=== PATIENT | male | born 1970 | race Caucasian/White ===

== ENCOUNTER 2025-07-07 08:30 | Inpatient (IN) | payer BC ==
[~2025-07-07] VITALS: Ht 182.9 cm; Wt 95.0 kg
--- NOTE | 2025-07-07 08:37 | ELECTROCARDIOGRAPH REPORT ---
[facility] Test Date: 2025-07-07 Test Time: 08:36:06 Pat Name: FINESSE GUEVARA Department: [facility] Patient ID: [facility]-[id number] Room: [place] [address] Gender: M Safety Associate: : 1970 Requested By: JIMENEZ MORGAN Order Number: [id number] Reading MD: Dr. Zach Umanzor Measurements Intervals [place] Rate: 109 P: 75 CA: 178 QRS: 57 QRSD: 121 T: 164 QT: 340 QTc: 458 Interpretive Statements Sinus tachycardia Probable left atrial enlargement LVH with IVCD and secondary repol abnrm Electronically Signed On 07-09-2025 19:18:[address] Zach Umanzor Please click the below link to view image of tracing.
--- NOTE | 2025-07-07 08:53 | Physician Documentation ---
History of Present Illness ~ Chief Complaint: Chest Pain Stated Complaint: SOB Time Seen by MD: 08:52 HPI 54-year-old male presenting with chest pain and shortness of breath He tells me that for the past 8 days he has been having symptoms. He reports having intermittent chest tightness and pressure, worse in the left chest but radiates across his entire chest. It does not radiate to his neck or his back. He does also have shortness of breath that is worse with minimal exertion and with lying flat. He has had trouble sleeping due to shortness of breath. He has to stop and catch his breath when he walks short distances. He denies any fevers or recent infectious symptoms. He denies any leg pain or swelling. No history of heart problems. He does have a history of smoking 2 packs a day until he quit 8 days ago. He has no diagnosis of hypertension, hyperlipidemia or diabetes. No family history of heart disease or blood clots that he knows of. Medication Reconciliation Allergies: Coded Allergies: codeine (Verified Allergy, Intermediate, RASH, 07/07/25) Miscellaneous Medications Home Med List (No Home Medications), (Reported) Review of Systems Constitutional: Denies: fever Respiratory: Reports: SOB with exertion Cardiovascular: Reports: chest pain Physical Exam Vital Signs: Temperature: 97.3, Heart Rate: 116, Respiratory Rate: 22, BP: 156/69, Pulse Oximetry: 98, Weight: 95.000 Oxygen Flow Rate: 0 Physical Exam General: This is a pleasant and overall generally well-appearing middle-aged man, at bedside HEENT: Atraumatic, oropharynx is moist Heart: Tachycardic, heart rate around 110-120, + systolic murmur Lungs: Faint crackles in lung bases, no significant wheezing, no prolonged expiratory phase, normal oxygen saturation on room air Abdomen: Soft, nondistended, no significant tenderness to deep palpation, no rebound or guarding Extremities: Warm and well-perfused, no edema, no posterior calf or thigh tenderness Psychiatric: Appears mildly anxious but is cooperative with exam Progress Results/Orders Results/Orders Orders - JIMENEZ MORGAN MD Chest,Single View (07/07/25 08:51) Monitor (07/07/25 08:31) Saline Lock (07/07/25 08:31) Oxygen (07/07/25 08:31) Cta Chest Pe (07/07/25 10:10) Page Hospitalist (07/07/25 11:05) Completed Orders - JIMENEZ MORGAN MD Chest,Single View (07/07/25 08:51) Cbc/Diff (07/07/25 08:31) BMP (07/07/25 08:31) PBNP (07/07/25 08:31) Electrocardiogram (07/07/25 08:31) Hs Troponin I W Calculations (07/07/25 08:31) Hs Troponin I W Calculations (07/07/25 10:31) Hs Troponin I W Calculations (07/07/25 11:31) D-Dimer (07/07/25 09:09) Cta Chest Pe (07/07/25 10:10) Iohexol 350mg/Ml 100ml (Omnipaque 350mg/ (07/07/25 09:31) Aspirin 81mg Chew Tablet (Aspirin 81mg C (07/07/25 11:20) Hgb A1c (07/07/25 08:36) MG (07/07/25 08:36) TSH (07/07/25 08:36) Medications Received in ER Medications (Trade) Dose Ordered Sig/Dheeraj Route PRN Reason Start Time Stop Time Status Last Admin Dose Admin (aspirin 81MG chew tablet) 324 mg ONCE ONCE PO 07/07/25 11:20 07/07/25 11:21 DC 07/07/25 11:36 324 MG (heparin 10,000 unit/ml 1ml inj) 4,000 units ONCE ONCE IV 07/07/25 13:10 07/07/25 13:24 DC 07/07/25 13:36 4,000 UNITS Heparin Sodium/ Dextrose 250 ml @ 10 mls/hr Q25H PRN IV TO MAINTAIN PTT WITHIN RANGE 07/07/25 13:10 07/07/25 13:37 10 MLS/HR Vital Signs 07/07/25 07/07/25 07/07/25 07/07/25 08:33 08:45 08:57 09:32 Temp 97.3 Pulse 116 116 Resp 22 18 18 B/P (MAP) 156/69 163/72 (102) Pulse Ox 98 98 98 O2 Delivery Room Air* O2 Flow Rate 0 0 0 FiO2 21 07/07/25 07/07/25 11:30 12:16 Pulse 98 105 Resp 18 17 B/P (MAP) 145/61 (89) 140/61 (87) Pulse Ox 98 97 O2 Flow Rate 0 Laboratory Tests Test 07/07/25 08:36 07/07/25 10:44 07/07/25 11:46 White Blood Count 8.7 Red Blood Count 5.08 Hemoglobin 14.1 Hematocrit 42.7 Mean Corpuscular Volume 84.1 Mean Corpuscular Hemoglobin 27.7 Mean Corpuscular Hemoglobin Concent 33.0 Red Cell Distribution Width 13.8 Platelet Count 254 Mean Platelet Volume 7.1 L Neutrophils (%) (Auto) 64.1 Lymphocytes (%) (Auto) 29.8 Monocytes (%) (Auto) 4.9 Eosinophils (%) (Auto) 0.7 Basophils (%) (Auto) 0.5 Neutrophils # (Auto) 5.6 Lymphocytes # (Auto) 2.6 Monocytes # (Auto) 0.4 Eosinophils # (Auto) 0.1 Basophils # (Auto) 0.0 CBC Comment D-Dimer 1.05 H D-Dimer Comment Sodium Level 139 Potassium Level 4.4 Chloride Level 105 Carbon Dioxide Level 22.5 L Anion Gap 12 Blood Urea Nitrogen 14 Creatinine 1.02 Estimated GFR/1.73 m2 76 BUN/Creatinine Ratio 13.7 Glucose Level 106 H Hemoglobin A1c 5.6 Calcium Level 9.6 Magnesium Level 2.1 Troponin I High Sensitivity 715 *H 660 *H 663 *H Pro-B-Type Natriuretic Peptide 7654 H Albumin 3.8 Thyroid Stimulating Hormone (TSH) 1.88 Chemistry Comments Troponin I High Sens Percent Delta 7 0 Troponin I Hi Sens Absolute Change -55 3 Procalcitonin < 0.05 EKG/XRAY/CT/US/VASC/MRI EKG : Additional Comment I personally interpreted the EKG and this shows: Sinus tachycardic, rate 109, QTC 458, ST-depression in the lateral leads Chest X-Ray : Additional Comments I personally interpreted the x-ray, and it shows: Pulmonary edema concerning for congestive heart failure, no pneumothorax, no focal consolidation CT : Impression I personally interpreted the CT scan, and this shows no acute pulmonary embolus Consults/PCP Consults/PCP : Additional Comment Consult: I spoke to the internal medicine service, for admission in the hospital Heart Score: Heart Score Response (Comments) Value History Highly Suspicious 2 EKG Repolarization Disturb 1 Age 45-64 1 Risk Factors 1 or 2 risk factors 1 Troponin >3 x's Normal limit 2 Total 7 Medical Decision Making Differential Dx:Considerations: Include: angina, aortic dissection, chest wall pain, CHF, myocardial infarction, pericarditis, pneumonia, pulmonary embolus Additional Information The patient presents with chest pain and exertional shortness of breath. His history and exam is concerning for a cardiac cause of his pain, including he has a possible cardiac murmur. His workup is consistent with congestive heart failure and or NSTEMI. No pulmonary embolus. No evidence of infection. He was given aspirin and will be admitted to the medicine service for further workup and treatment. Departure Impression: Primary Impression: Chest pressure Additional Impression: Exertional shortness of breath Referrals: NO PRIMARY CARE PROVIDER (PCP) Signature Scribe Signature: na Attestation: JIMENEZ Art MD Jul 07, 2025 08:53
[2025-07-07 09:02] LABS: MEAN PLATELET VOLUME 7.1 FL (7.4-10.4); RED CELL DISTRIBUTION WIDTH 13.8 % (11.5-14.5)
--- NOTE | 2025-07-07 09:17 | RADIOLOGY REPORT ---
CHEST RADIOGRAPH Indication: CP Technique: Single frontal view of the chest was obtained COMPARISON: None FINDINGS: Lines and Tubes: None Lungs: Increased interstitial prominence Pleura: No effusion. No pneumothorax. Cardiomediastinal contours: Unremarkable Bones: Unremarkable IMPRESSION: Increased interstital prominence. This may represent pulmonary vascular congestion and/or viral pneumonia. Clinical correlation advised.
[2025-07-07 09:25] LABS: CREATININE 1.02 MG/DL (0.60-1.10); PRO BRAIN NATRIURETIC PEPTIDE 7654 PG/ML (0-125); TOTAL CARBON DIOXIDE 22.5 MMOL/L (24-32); eCRCL 91 ML/MIN; eGFR 76 ML/MIN
--- NOTE | 2025-07-07 11:05 | RADIOLOGY REPORT ---
CTA Chest with intravenous contrast INDICATION: Chest pain, shortness of breath COMPARISON: None TECHNIQUE: Multidetector spiral CTA of the chest was performed of the chest with intravenous contrast. PULMONARY ANGIOGRAPHY PROTOCOL was utilized using a bolus- tracking technique centered on the main pulmonary artery. Axial, coronal and sagittal multiplanar and MIP reformats were performed. Radiation Dose : 1. Chest: CTDI volume is 21.3 mGy. Dose-length product is 826 mGy*cm The dose indicators for CT are the volume Computed Tomography (CT) Dose Index (CTDIvol) and the Dose Length Product (DLP), and are measured in units of mGy and mGy-cm, respectively. These indicators are not patient dose, but values generated from the CT scanner acquisition factors. The report includes radiation exposure data for exposures received during this examination. Findings: Pulmonary artery: No pulmonary embolism Lower neck: Normal thyroid. Lungs: Mild interlobular septal thickening. Heart/Vascular Structures: Cardiomegaly. Coronary artery calcifications. Vascular calcifications of the aorta. Lymph Nodes: No adenopathy Pleura: Small right pleural effusion Musculoskeletal: No acute osseous abnormality. Soft tissues: Normal. Upper abdomen: Limited portions of the upper abdomen are unremarkable. IMPRESSION: No pulmonary embolism. Cardiomegaly with mild pulmonary edema and small right pleural effusion.
[2025-07-07] MEDS ORDERED: potassium Cl 20 mEq SR tablet PO PRN ×2 (13:10)
[2025-07-07] MEDS ORDERED: metoclopramide 5 mg/ml inj IV PRN (13:10)
[2025-07-07] MEDS ORDERED: magnesium sulf-water 4G/100mL 100 ML IV PRN (13:10)
[2025-07-07] MEDS ORDERED: potassium Cl 40MEQ/1/2NS 520ml 520 ML IV PRN (13:10)
[2025-07-07] MEDS ORDERED: magnesium Cl slow-release 64mg tablet PO PRN (13:10)
[2025-07-07] MEDS ORDERED: docusate sod 100mg capsule PO PRN (13:10)
[2025-07-07] MEDS ORDERED: ondansetron/PF 4mg/2ml inj IV PRN (13:10)
[2025-07-07] MEDS ORDERED: magnesium hydroxide 30ml (MOM) UD suspension PO PRN (13:10)
[2025-07-07] MEDS ORDERED: magnesium sulf-water 2g/50mL 50 ML IV PRN (13:10)
[2025-07-07] MEDS: PERFLUTREN PROTEIN-A MICROSPHR (Optison) 0.22 MG/ML 3ML VIAL IV ONE (13:15)
[2025-07-07] MEDS: heparin 10,000 units/1 ML INJ IV ONE (13:36)
[2025-07-07] MEDS: heparin 25,000 UNIT/250ml bag 250 ML IV PRN (13:37)
[2025-07-07] MEDS: HEPARIN DRIP-CARDIAC**PHARMACIST-TO-DOSE IV ONE (13:37)
[2025-07-07 14:40] LABS: INR 3.9 INR
--- NOTE | 2025-07-07 15:46 | HISTORY AND PHYSICAL-Residence ---
History & Physical Providers to CC Resident Creating Document: RICHARD CASTELAN REGIS ~ History of Present Illness Primary Medical Doctor: NONE Reason for Admit\Complaint: NSTEMI History of Present Illness A 54 years old male with no known past medical history presented with the acute shortness of breath and substernal pain over the 8 days back which was progressive and worsening today. He endorsed that he has not been visiting PCP over 30 years and not known what medical condition he has. He reported that he has been having progressive SOB on exertion even on staying still with the off and on chest pressure across the chest. He stated that he quit smoking 7 days ago, and used to smoke 2 packs per day for 35 years and reduced down to the 1 pack per day. He dose not have any knowledge if he has any cholesterol problems or HTN or DM or Heart diseases. He denies any extensive familial cardiac disorder history. He denies for hemoptysis, fever with chills and rigors, etc. Allergies: Coded Allergies: codeine (Verified Allergy, Intermediate, RASH, 07/07/25) Past Medical History Past Medical History no known relevant past medical history Past Surgical History Surgical History Comment not relevant past surgical history Past Social History Social History Comment currently living with his spouse, and used to smoke 2 packs of cigarette per day for 35 years and quit smoking 7 days ago. Denies using any illicit drugs and dose not drink alcohol. ROS All Other Systems: Reviewed and Negative ROS Constitutional: No fever, chills, dizziness, weakness, weight gain or loss Eyes: No pain, erythema, discharge, blurring of vision ENT: No sore throat, epistaxis, tinnitus Cardiovascular: No palpitations, syncope, lower extremity edema, paroxysmal nocturnal dyspnea Respiratory: No shortness of breath, cough, hemoptysis Gastrointestinal: Normal appetite. No nausea, vomiting, diarrhea, constipation, hematemesis, abdominal pain, bloating, melena or fresh blood Genitourinary: No frequency, urgency, nocturia, hematuria or dysuria Musculoskeletal: No arthralgias or myalgias Integumentary: No change in skin, hair, nails. No swelling, bruising, abrasions Neurologic: No headache, neck pain, numbness or tingling of the extremities, weakness Psychiatric: No delusions, depression, loss of interest in normal activity or change in sleep pattern, hallucinations, suicidal ideations Endocrine: No fatigue, weakness, polydipsia, polyuria, change in appetite, heat or cold intolerance, sweating, dry skin Hematological: No bleeding, petechiae, bruising Allergies: No asthma or urticaria Constitutional: Denies: fever Respiratory: Reports: SOB with exertion Cardiovascular: Reports: chest pain Exam Vitals: Vital Signs Date Time Temp Pulse Resp B/P (MAP) Pulse Ox O2 Delivery O2 Flow Rate FiO2 07/07/25 14:00 102 18 152/65 (94) 98 0 07/07/25 09:32 Room Air* 21 07/07/25 08:33 97.3 General: General: Well alert, well oriented, not confused, not agitated, not in acute distress, well cooperated during the physical. HEENT: HEENT: Conjunctive are pink, sclerae clear, no icterus, pupil is equal in both sides, reactive to light, no ear discharge, no pharyngeal erythema or an edema, mouth and lips are dry. Neck: Neck: Supple, no JVD, no lymphadenopathy and thyromegaly. Chest: Lungs:Equal air entry on both lungs, no additional sounds Cardiovascular: Heart: S1-S2 regular sinus rhythm and, regular rate, no gallops, no rubs, no murmurs Abdomen: Abdomen: No visible peristalsis, Bowel sounds present on auscultation, soft, nontender, no guarding, no rigidity Extremities: Extremities: No obvious deformities, no pitting edema bilaterally, capillary refill intact, able to wiggle toes both sides, peripheral pulsations are intact on both sides Central Nervous System: CHILDCARE DIRECTOR: No focal neurological deficits, no motor and sensory weakness in all 4 extremities, could move all 4 extremities Musculoskeletal: Musculoskeletal: No joint swelling, deformities, inflammations, and no scoliosis and back tenderness Skin: Skin: No active skin lesions and rashes Diagnostic Data Last Recorded Lab Results: 07/07/25 0836 07/07/25 0836 Diagnostic Data: Laboratory Tests Test 07/07/25 08:36 07/07/25 13:48 D-Dimer 1.05 MG/L FEU (0-0.50) H D-Dimer Comment Prothrombin Time 34.8 SECONDS (9.0-12.0) H INR International Normalized Ratio 3.9 INR Coagulation Comments Counseling Services Smoking & Tobacco Cessation: > 10 Minutes Advance Care Planning Advanced Care plannin - 30 Minutes Additional Plan A 54 years old male with no known past medical history presented with the acute shortness of breath and substernal pain over the 8 days back which was progressive and worsening today. He was found to have elevated serial trop with ST T depression at the lateral EKG leads. He was admitted for the NSTEMI for further investigation and management plan. # NSTEMI # nonspecific elevation of proBNP -given history of elevated initial troponin level 715 with a downtrending serial troponin show 660, 663 in the presence of typical angina associated with the shortness of breaths, EKG noted for ST-T depression in inferior leads, patient is possibly having the non-STEMI situation -elevated proBNP, pending 2D echocardiogram -started on heparin drip -consulted with Dr Tuyet Ureña and appreciate it. -SL Nitrogly as needed for CP -Protonix 40 mg PO Daily -Pending Utox screen # Acute respiratory distress # Elevated D Dimer -Ruled out Acute PE with CTA Chest showed No pulmonary embolism. Cardiomegaly with mild pulmonary edema and small right pleural effusion. -chest x-ray showed Increased interstital prominence. This may represent pulmonary vascular congestion and/or viral pneumonia. Clinical correlation advised. # Hypertension -HbA1c 5.6, pending lipid profile, TSH WNL -to calculate for 10 years ASCVD risk for statin therapy -control CP -continue monitoring BP -started PO Losartan 50 mg daily CODE STATUS: Full code DVT prophylaxis: IV heparin Analgesia/sedation: IV morphine as needed Lines/tubes: PIV GI prophylaxis: Protonix Nutrition: Heart healthy diet Prognosis: Guarded Disposition: Continue medical management including IV heparin, cardiology consultation, pain control and blood pressure control, PT eval and DC plan. Resident MD attestation: Patient was seen, examined and discussed with attending MD, Dr. Leanne CASTELAN MD Internal Medicine Resident, PGY3 [facility] Date of Service: Jul 07, 2025 Billing Provider: RACHELE REYES MD Common Visit Codes: [id number] INP/OBS CARE (HIGH) RICHARD CASTELAN, RES Jul 07, 2025 15:46 RACHELE REYES MD Jul 10, 2025 08:32
[2025-07-07 16:30] VITALS: BP 146/61; PULSE 108; RESP 16; TEMP 98; O2SAT 97
--- NOTE | 2025-07-07 16:47 | CONSULTATION REPORT ---
History of Present Illness Providers to CC CC: ROHAN UREÑA MD ~ Reason for Admit\Admit Dx: Cardiology consultation Refering MD: NONE History of Present Illness Patient is a 54-year-old male who presented secondary to shortness for breath and chest pain. He has no past medical history. Has been a current everyday smoker for many years. States shortness for breath started about one week ago prompting him to quit smoking quite suddenly. He has had intermittent chest pain that is substernal radiating to his left shoulder. Intermittently going to his back. 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 Complains of orthopnea preventing him from sleeping for the past three days. He has not no known family history of cardiac disease. EKG shows ST depression in V4 through V6. LVH pattern. High sensitivity troponins found to be elevated. Cardiology consultation requested with the on-call car rental agent, Dr. Ureña. Allergies: Coded Allergies: codeine (Verified Allergy, Intermediate, RASH, 07/07/25) Past Medical History Medical History Comment No past medical history Past Surgical History Surgical History Comment No history of any surgeries Past Family History Family History Comment Denies any known family history of cardiac disease, diabetes, stroke or any other known medical complaints. Past Social History Social History Comment He smokes about a pack a day but quit about one week ago. Prior to this he smoked two packs a day for a couple of years. Denies alcohol use. Smokes marijuana. 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 Lives with . Physical Exam Last Vital Signs Recorded: RN Vital Signs have been reviewed: Yes, Temperature: 97.3, Heart Rate: 112, Respiratory Rate: 14, BP: 155/76, Pulse Oximetry: 98, Weight: 95.000 Physical Exam General: Awake, alert, oriented. No apparent distress Neck: Supple. Normal range of motion. No JVD Respiratory: Lungs are clear to auscultation bilaterally. No respiratory distress. Chest: Normal shape and size. No accessory muscle use. Cardiovascular: Regular rate and rhythm. S1-S2. No murmur, gallop, rub. Gastrointestinal: Abdomen is soft. Nontender to palpation. Bowel sounds present. Extremities: No lower extremity edema, cyanosis or clubbing. Neurologic: Alert and oriented x4. Nonfocal Psychiatric: Normal mood and affect. Skin: Normal color. Warm and dry. Review of Systems ROS Review of systems negative except specifically documented in HPI. Results X-ray X-ray Chest x-ray reviewed by myself indicates pulmonary vascular congestion. Diagram Lab Result Diagram: 07/07/2583507/07/25835 Assessment/Plan Additional Plan Patient presented with chest pain and shortness for breath. The following is his problem list: NSTEMI High sensitivity troponin 715, 660, 663. --continue with heparin drip --aspirin 81 mg daily --start metoprolol --recommend cardiac catheterization. Risks, benefits and alternatives were reviewed in detail with him and his . They had the opportunity to ask questions. Willing to proceed with the same. Discussed with Dr. Ureña in agreement. We will be scheduled for tomorrow morning. Suspected heart failure Shortness for breath with elevated NT proBNP. Pulmonary vascular congestion on x-ray. Echocardiogram is pending --order placed for one time dose of Lasix. I will re-evaluate in the morning. Tobacco use disorder --highly encouraged to quit Case discussed with Dr. Ureña. In agreement with the above. Supervising MD Supervising Physician: LEELEE Shafer NP Jul 07, 2025 16:47
[2025-07-07] MEDS ORDERED: NO HOME MEDS (16:54)
[2025-07-07 18:00] VITALS: BP 163/69; PULSE 120; RESP 22; TEMP 98.3; O2SAT 96
[2025-07-07] MEDS: pantoprazole 40mg Tablet.DR PO SCH (18:04)
--- NOTE | 2025-07-07 18:51 | CARDIOLOGY REPORT ---
APPROVED REPORT EXAM: Comprehensive 2D, Doppler, and color-flow Echocardiogram. Patient Location: [address] Blood Pressure: 146/61 mmHg Heart Rate: 112 bpm Rhythm: SINUS TACHYCARDIA Indications CHEST PAIN TROP 715, 660, 663 PBNP 7654 SHORTNESS OF BREATH MURMUR Wellness Assistant: NONE Previous echo: NONE 2D Dimensions RVDd 4.7 cm IVSd 1.2 (0.7-1.1cm) LVDd 5.7 cm PWd 1.2 (0.7-1.1cm) IVSs 1.4 (0.8-1.2cm) LVDs 4.5 (2.5-4.0cm) PWs 1.4 (0.8-1.2cm) LVOT Diameter 2.62 (1.8-2.4cm) LVEF(%) 41.9 (>50%) FS (%) 20.8 % SV 68.2 ml CO 7.5 L/min M-Mode Dimensions Left Atrium(MM) 4.65 (2.5-4.0cm) Aortic Root 4.04 (2.2-3.7cm) Aortic Cusp Exc 2.04 (1.5-2.0cm) Aortic Valve AoV Peak Phillip. 191.9 cm/s AoV VTI 28.4 cm AO Peak GR. 14.7 mmHg AO Mean GR. 9 mmHg LVOT VTI 19.14 cm LVOT Peak Phillip. 108.9 cm/s DAVID(VTI)/BSA 3.65 cm2/m2 DAVID (VTI) 3.65 cm2 Mitral Valve MV E Velocity 141.0 cm/s MV Peak Gr. 10 mmHg MV PHT 48 ms MVA (PHT) 4.58 cm2 MV VMax 157.6 cm/s LEFT VENTRICLE Dilated LV size and wall thickness. Multisegmental wall motion abnormalities. Overall systolic function is severely reduced. LVEF is 30-35%. RIGHT VENTRICLE RV is moderately dilated with normal function. ATRIA Left atrium is mildly dilated. AORTIC VALVE Trileaflet AV appears normal without stenosis. Eccentric at least moderate insufficiency, difficult to evaluate due to rapid heart rate. MITRAL VALVE Mild MV annular calcification without stenosis. Trace regurgitation. TRICUSPID VALVE TV appears structurally normal with trace regurgitation. PULMONIC VALVE Normal PV without stenosis, physiologic insufficiency. GREAT VESSELS Aortic root is mildly dilated, at 4.04. PERICARDIUM Normal pericardium. No effusion. Other Information Study Quality: Adequate Conclusion Dilated LV size and wall thickness. Multisegmental wall motion abnormalities. Overall systolic function is severely reduced. LVEF is 30-35%. RV is moderately dilated with normal function. Left atrium is mildly dilated. Trileaflet AV appears normal without stenosis. Eccentric at least moderate insufficiency, difficult to evaluate due to rapid heart rate. Mild MV annular calcification without stenosis. Trace regurgitation. TV appears structurally normal with trace regurgitation. Aortic root is mildly dilated, at 4.04. Normal pericardium. No effusion.
[2025-07-07 19:35] VITALS: BP 126/58; PULSE 101; TEMP 98; O2SAT 99
[2025-07-07 19:55] VITALS: BP 123/61; PULSE 96; O2SAT 96
--- NOTE | 2025-07-07 19:55 | ELECTROCARDIOGRAPH REPORT ---
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 LANDEN De Santiago Measurements Intervals [place] Rate: 97 P: 55 NE: 203 QRS: 32 QRSD: 126 T: 144 QT: 369 QTc: 469 Interpretive Statements Sinus rhythm Borderline prolonged NE interval Left bundle branch block Electronically Signed On 07-08-2025 16:48:[address] LANDEN De Santiago Please click the below link to view image of tracing.
[2025-07-07] MEDS: mag hydrox/Alum hydrox/simeth 30ml oral suspension PO PRN (19:57)
[2025-07-07 20:00] VITALS: RESP 18; O2SAT 99
[2025-07-07] MEDS: K and/or MAG REPLACEMENT MC SCH (20:00)
[2025-07-07] MEDS: MESSAGE TO NURSING IV ONE (21:45)
[2025-07-07 22:00] VITALS: BP 113/51; PULSE 90; RESP 18; TEMP 97.8; O2SAT 93
[2025-07-07] MEDS: heparin 10,000 units/1 ML INJ IV PRN (22:04)
[2025-07-08] VITALS (9 sets, daily range): BP systolic 115–133; BP diastolic 48–93; PULSE 71–105; RESP 13–23; TEMP 97–98.7; O2SAT 93–99
[2025-07-08 04:39] LABS: MEAN PLATELET VOLUME 7.2 FL (7.4-10.4); RED CELL DISTRIBUTION WIDTH 13.5 % (11.5-14.5)
[2025-07-08 05:17] LABS: CHOL/HDL RATIO 6.4 (0.00-4.99); CREATININE 1.15 MG/DL (0.60-1.10); LDL CHOLESTEROL 142 MG/DL (50-100); TOTAL CARBON DIOXIDE 22.3 MMOL/L (24-32); eCRCL 81 ML/MIN; eGFR 66 ML/MIN
[2025-07-08] MEDS ORDERED: LIDOcaine 1% (10mg/ml) 2ml vial ONE (05:29)
[2025-07-08] MEDS: MESSAGE TO NURSING IV ONE (05:44)
[2025-07-08] MEDS: aspirin 81mg, enteric-coated 1 TAB TABLET.DR PO SCH (09:31)
[2025-07-08] MEDS: metoprolol succinate 25mg (24-HOUR) SR. Tablet PO SCH (09:31)
--- NOTE | 2025-07-08 09:50 | PROGRESS NOTE- Residence ---
Progress Note - Resident Providers to CC Resident Creating Document: RICHARD CASTELAN, REGIS ~ Antibiotic Timeout Antibiotic Ordered?: No Subjective pt will be having the cardiac angiogram tomorrow by Dr Ureña as his INR was 3.9. Objective Vital Signs Date Time Temp Pulse Resp B/P (MAP) Pulse Ox O2 Delivery O2 Flow Rate FiO2 07/08/25 02:00 98.7 94 18 118/60 (79) 93 Room Air 07/07/25 14:00 0 07/07/25 09:32 21 Result Diagram: 07/08/2541907/08/25419 Vitals were stable at the moment with temp 98.7 F, WA 94/minute, RR 18/minute, BP 118/60 mm Hg, pulse oximetry 93% on room air. On exam, General: Well alert, well oriented, not confused, not agitated, not in acute distress, well cooperated during the physical. HEENT: Conjunctive are pink, sclerae clear, no icterus, pupil is equal in both sides, reactive to light, no ear discharge, no pharyngeal erythema or an edema, mouth and lips are dry. Neck: Supple, no JVD, no lymphadenopathy and thyromegaly. Lungs:Equal air entry on both lungs, no additional sounds Heart: S1-S2 regular sinus rhythm and, regular rate, no gallops, no rubs, no murmurs Abdomen: No visible peristalsis, Bowel sounds present on auscultation, soft, nontender, no guarding, no rigidity Extremities: No obvious deformities, no pitting edema bilaterally, capillary refill intact, able to wiggle toes both sides, peripheral pulsations are intact on both sides ETHANOL QUALITY LEADER: No focal neurological deficits, no motor and sensory weakness in all 4 extremities, could move all 4 extremities Musculoskeletal: No joint swelling, deformities, inflammations, and no scoliosis and back tenderness Skin: No active skin lesions and rashes Coagulation Studies Laboratory Tests Test 07/07/25 08:36 07/07/25 13:48 07/08/25 04:20 D-Dimer 1.05 MG/L FEU (0-0.50) H D-Dimer Comment Prothrombin Time 34.8 SECONDS (9.0-12.0) H INR International Normalized Ratio 3.9 INR APTT (Heparin Protocol) 33 SECONDS (45-60) L Coagulation Comments Assessment Assessment A 54 years old male with no known past medical history presented with the acute shortness of breath and substernal pain over the 8 days back which was progressive and worsening today. He was found to have elevated serial trop with ST T depression at the lateral EKG leads. He was admitted for the NSTEMI for further investigation and management plan. He was evaluated by Dr Tuyet Ureña and team for the further evaluation and coronary angiogram. Plan Plan # NSTEMI # Acute on chronic decompensated CHFrEF 30-35% on 07/07/25 -given history of elevated initial troponin level 715 with a downtrending serial troponin show 660, 663 in the presence of typical angina associated with the shortness of breaths, EKG noted for ST-T depression in inferior leads, patient is possibly having the non-STEMI situation -elevated proBNP, pending 2D echocardiogram -started on heparin drip -consulted with Dr Tuyet Ureña and appreciate it. -SL Nitrogly as needed for CP -Protonix 40 mg PO Daily -Pending Utox screen 07/08/25: He will be undergoing coronary angiogram today -continue IV Heparin until further notice by Cardiology team -continue metoprolol succinate 50mg QD -echocardiogram on 07/07/2025 showed LVEF 30-35%, multi segmental wall motion abnormalities, overall systolic function severely reduced, RV moderately dilated, LA mildly dilated, trace MR, TR, mildly dilated aortic root 4.04, normal pericardium and no effusion. -was given one time dose of IV Lasix 20 mg once yesterday and continue BID # Acute respiratory distress # Elevated D Dimer -Ruled out Acute PE with CTA Chest showed No pulmonary embolism. Cardiomegaly with mild pulmonary edema and small right pleural effusion. -chest x-ray showed Increased interstital prominence. This may represent pulmonary vascular congestion and/or viral pneumonia. Clinical correlation advised. # Hypertension # HLD # Overweight with BMI 28.4 -HbA1c 5.6, pending lipid profile, TSH WNL -to calculate for 10 years ASCVD risk for statin therapy -control CP -continue monitoring BP -started PO Losartan 50 mg daily 07/08/25: BP is stabilized and controlled well around 120/60 mm Hg, continue Losartan -total cholesterol 206, LDL 142 with a goal LDL she will be< 55 -10 year ASCVD risk is 22%, continue high intensity atorvastatin 40 mg daily -HGB A1c 5.6 CODE STATUS: Full code DVT prophylaxis: IV heparin Analgesia/sedation: IV morphine as needed Lines/tubes: PIV GI prophylaxis: Protonix Nutrition: Heart healthy diet Prognosis: Guarded Disposition: Continue medical management including IV heparin until further noticed by Cardiology, proceed with the cardiology Catheterization tomorrow, pain control and blood pressure control, PT eval and DC plan. Resident MD attestation: Patient was seen, examined and discussed with attending MD, Dr. Leanne CASTELAN MD Internal Medicine Resident, PGY3 [facility] Date of Service: Jul 08, 2025 Billing Provider: RACHELE REYES MD Common Visit Codes: [id number] INP/OBS CARE(HIGH) RICHARD CASTELAN, REGIS Jul 08, 2025 09:50 RACHELE REYES MD Jul 10, 2025 08:32
--- NOTE | 2025-07-08 09:55 | PROGRESS NOTE ---
Progress Note Cardiology Providers to CC ~ Subjective Subjective Patient resting comfortably in bed. Had planned for cardiac catheterization this morning however his INR was 3.9 yesterday and therefore case was canceled. Heparin drip was stopped by Dr. Ureña States he did not sleep well last night. Continues to have some shortness for breath and tightness in the chest. Objective Result Diagram: 07/08/25 04207/08/25419 Objective General: Awake, alert, oriented. No apparent distress Neck: Supple. Normal range of motion. No JVD Respiratory: Lungs are clear to auscultation bilaterally. No respiratory distress. Chest: Normal shape and size. No accessory muscle use. Cardiovascular: Regular rate and rhythm. S1-S2. No murmur, gallop, rub. Gastrointestinal: Abdomen is soft. Nontender to palpation. Bowel sounds present. Extremities: No lower extremity edema, cyanosis or clubbing. Neurologic: Alert and oriented x4. Nonfocal Psychiatric: Normal mood and affect. Skin: Normal color. Warm and dry. Coagulation Studies Laboratory Tests Test 07/07/25 08:36 07/07/25 13:48 07/08/25 04:20 D-Dimer 1.05 MG/L FEU (0-0.50) H D-Dimer Comment Prothrombin Time 34.8 SECONDS (9.0-12.0) H INR International Normalized Ratio 3.9 INR APTT (Heparin Protocol) 33 SECONDS (45-60) L Coagulation Comments Problem\Assessment\Plan Additional Plan Patient presented with chest pain and shortness for breath. The following is his problem list: NSTEMI High sensitivity troponin 715, 660, 663. --aspirin 81 mg daily --metoprolol succinate 25 mg daily --high intensity statin to keep goal LDL less than 55 --heparin drip stopped by Dr. Ureña 07/08/25 --07/08/25: Had planned for cardiac catheterization this morning however INR was 3.9 yesterday. We will recheck INR today and again tomorrow morning. If it continues to trend down we will consider cardiac catheterization. Heart failure with reduced ejection fraction TTE demonstrates LV dilated (LVDd 5.7 cm) with LVEF 30-35%. RV moderately dilated with normal function. Moderate AI. Shortness for breath with elevated NT proBNP. Pulmonary vascular congestion on x-ray. --07/08/25: Patient continues to have shortness for breath. 20 mg IV Lasix x1 ordered. --metoprolol succinate 25 mg daily --continue losartan 50 mg daily --we will consider Aldactone/Jardiance if able to tolerate prior to discharge. Of note, Jardiance and Entresto may be cost prohibitive for him. Tobacco use disorder Quit smoking when he started feeling short of breath last week. --highly encouraged to quit Hyperlipidemia Total cholesterol 206, LDL 142, HDL 32, triglycerides 109 --high-intensity statin as noted above is recommended. Case discussed with Dr. Ureña. In agreement with the above. Supervising Physician: LEELEE Shafer NP Jul 08, 2025 09:55
[2025-07-08 11:35] LABS: INR 1.1 INR
[2025-07-09] VITALS (9 sets, daily range): BP systolic 96–127; BP diastolic 44–58; PULSE 89–99; RESP 16–20; TEMP 97.1–97.8; O2SAT 93–99
[2025-07-09 05:39] LABS: LEUKOCYTE ESTERASE ,URINE NEGATIVE (Neg); NITRITES, URINE NEGATIVE (Neg); OCCULT BLOOD,URINE TRACE-INTACT (Neg)
[2025-07-09 06:12] LABS: URINE AMPHETAMINE SCREEN NEGATIVE (Neg); URINE BARBITUATE SCREEN NEGATIVE (Neg); URINE BENZODIAZEPINES SCREEN NEGATIVE (Neg); URINE CANNABINOID SCREEN POSITIVE (Neg); URINE COCAINE SCREEN NEGATIVE (Neg); URINE METHADONE SCREEN NEGATIVE (Neg); URINE OPIATE SCREEN NEGATIVE (Neg); URINE PHENCYCLIDINE SCREEN NEGATIVE (Neg)
[2025-07-09 06:17] LABS: UA COLLECTION TYPE CLN CATCH MIDSTREAM
[2025-07-09 06:19] LABS: MUCUS STRANDS NONE SEEN /LPF (Neg); SQUAMOUS EPITHELIAL CELL,UR FEW /LPF (FEW)
[2025-07-09 06:45] LABS: INR 1.1 INR
[2025-07-09 06:46] LABS: MEAN PLATELET VOLUME 7.3 FL (7.4-10.4); RED CELL DISTRIBUTION WIDTH 13.6 % (11.5-14.5)
[2025-07-09 06:52] LABS: CREATININE 0.91 MG/DL (0.60-1.10); TOTAL CARBON DIOXIDE 25.0 MMOL/L (24-32); eCRCL 102 ML/MIN; eGFR 87 ML/MIN
--- NOTE | 2025-07-09 16:00 | PROGRESS NOTE- Residence ---
Progress Note - Resident Providers to CC Resident Creating Document: RICHARD CASTELAN RES ~ Antibiotic Timeout Antibiotic Ordered?: Yes Subjective pt will be having the angiogram by Dr Tuyet Ureña team today. His INR today was 1.1. No special complaints including chest pain were reported. Objective Vital Signs Date Time Temp Pulse Resp B/P (MAP) Pulse Ox O2 Delivery O2 Flow Rate FiO2 07/09/25 11:00 97.3 99 20 123/53 (76) 95 Room Air 07/07/25 14:00 0 07/07/25 09:32 21 Result Diagram: 07/09/25 0551 07/09/25 0551 Vitals were stable at the moment with temp 97.3 F, SC 99/minute, RR 20/minute, BP 123/53 mm Hg, pulse oximetry 95% on room air. On exam, General: Well alert, well oriented, not confused, not agitated, not in acute distress, well cooperated during the physical. HEENT: Conjunctive are pink, sclerae clear, no icterus, pupil is equal in both sides, reactive to light, no ear discharge, no pharyngeal erythema or an edema, mouth and lips are dry. Neck: Supple, no JVD, no lymphadenopathy and thyromegaly. 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: No focal neurological deficits, no motor and sensory weakness in all 4 extremities, could move all 4 extremities Musculoskeletal: No joint swelling, deformities, inflammations, and no scoliosis and back tenderness Skin: No active skin lesions and rashes Coagulation Studies Laboratory Tests Test 07/07/25 08:36 07/08/25 04:20 07/09/25 05:51 D-Dimer 1.05 MG/L FEU (0-0.50) H D-Dimer Comment APTT (Heparin Protocol) 33 SECONDS (45-60) L Prothrombin Time 11.1 SECONDS (9.0-12.0) INR International Normalized Ratio 1.1 INR Coagulation Comments Assessment Assessment A 54 years old male with no known past medical history presented with the acute shortness of breath and substernal pain over the 8 days back which was progressive and worsening today. He was found to have elevated serial trop with ST T depression at the lateral EKG leads. He was admitted for the NSTEMI for further investigation and management plan. He was evaluated by Dr Tuyet Ureña and team for the further evaluation and coronary angiogram. Plan Plan # NSTEMI # Acute on chronic decompensated CHFrEF 30-35% on 07/07/25 -given history of elevated initial troponin level 715 with a downtrending serial troponin show 660, 663 in the presence of typical angina associated with the shortness of breaths, EKG noted for ST-T depression in inferior leads, patient is possibly having the non-STEMI situation -elevated proBNP, pending 2D echocardiogram -started on heparin drip -consulted with Dr Tuyet Ureña and appreciate it. -SL Nitrogly as needed for CP -Protonix 40 mg PO Daily -Pending Utox screen 07/08/25: He will be undergoing coronary angiogram today -continue IV Heparin until further notice by Cardiology team -continue metoprolol succinate 50mg QD -echocardiogram on 07/07/2025 showed LVEF 30-35%, multi segmental wall motion abnormalities, overall systolic function severely reduced, RV moderately dilated, LA mildly dilated, trace MR, TR, mildly dilated aortic root 4.04, normal pericardium and no effusion. -was given one time dose of IV Lasix 20 mg once yesterday and continue BID 07/09/2025: Dr Tuyet Ureña will be doing angiogram today. -continue GDMT as per BP allows, and IV Lasix 20 BID # Acute respiratory distress # Elevated D Dimer -Ruled out Acute PE with CTA Chest showed No pulmonary embolism. Cardiomegaly with mild pulmonary edema and small right pleural effusion. -chest x-ray showed Increased interstital prominence. This may represent pulmonary vascular congestion and/or viral pneumonia. Clinical correlation advised. 06/29/2025: Continue IV Lasix 20 mg b.i.d. -pulmonary rehab # Hypertension # HLD # Overweight with BMI 28.4 -HbA1c 5.6, pending lipid profile, TSH WNL -to calculate for 10 years ASCVD risk for statin therapy -control CP -continue monitoring BP -started PO Losartan 50 mg daily 07/08/25: BP is stabilized and controlled well around 120/60 mm Hg, continue Losartan -total cholesterol 206, LDL 142 with a goal LDL she will be< 55 -10 year ASCVD risk is 22%, continue high intensity atorvastatin 40 mg daily -HGB A1c 5.6 07/09/2025: BP stabilized around 120/50 mm Hg -continue p.o. losartan 50 mg daily, atorvastatin 40 mg daily -RBS ranging around 110s # mild protein calorie malnutrition -encourage protein diet. CODE STATUS: Full code DVT prophylaxis: IV heparin Analgesia/sedation: IV morphine as needed Lines/tubes: PIV GI prophylaxis: Protonix Nutrition: Heart healthy diet Prognosis: Guarded Disposition: Continue medical management, proceed with the cardiology Catheterization, pain control and blood pressure control, PT eval and DC plan. Resident MD attestation: Patient was seen, examined and discussed with attending MD, Dr. Leanne CASTELAN MD Internal Medicine Resident, PGY3 [facility] Date of Service: Jul 09, 2025 Billing Provider: RACHELE REYES MD Common Visit Codes: [id number] INP/OBS CARE(HIGH) RICHARD CASTELAN, RES Jul 09, 2025 16:00 RACHELE REYES MD Jul 10, 2025 08:31
--- NOTE | 2025-07-09 16:05 | PROGRESS NOTE ---
Progress Note Cardiology Providers to CC ~ Subjective Subjective Patient is feeling much better today, his SOB has improved. INR is 1.1 so he is now a candidate for cardiac catheterization. Objective Result Diagram: 07/09/25 0551 07/09/25 0551 Objective General: Awake, alert, oriented. No apparent distress Neck: Supple. Normal range of motion. No JVD Respiratory: Lungs are clear to auscultation bilaterally. No respiratory distress. Chest: Normal shape and size. No accessory muscle use. Cardiovascular: Regular rate and rhythm. S1-S2. No murmur, gallop, rub. Gastrointestinal: Abdomen is soft. Nontender to palpation. Bowel sounds present. Extremities: No lower extremity edema, cyanosis or clubbing. Neurologic: Alert and oriented x4. Nonfocal Psychiatric: Normal mood and affect. Skin: Normal color. Warm and dry. Coagulation Studies Laboratory Tests Test 07/07/25 08:36 07/08/25 04:20 07/09/25 05:51 D-Dimer 1.05 MG/L FEU (0-0.50) H D-Dimer Comment APTT (Heparin Protocol) 33 SECONDS (45-60) L Prothrombin Time 11.1 SECONDS (9.0-12.0) INR International Normalized Ratio 1.1 INR Coagulation Comments Problem\Assessment\Plan Additional Plan Additional Plan Patient presented with chest pain and shortness for breath. The following is his problem list: NSTEMI High sensitivity troponin 715, 660, 663. --aspirin 81 mg daily --metoprolol succinate 25 mg daily --high intensity statin to keep goal LDL less than 55 --heparin drip stopped by Dr. Ureña 07/08/25 --07/09/25: INR now 1.1. Dr. Urñea to proceed with cardiac catheterization with possible revascularization today. Discussed the nature of the procedure, including risks, benefits, and alternatives at length with patient and his . All questions were addressed and answered. The patient voices understanding and is willing to move forward. Heart failure with reduced ejection fraction TTE demonstrates LV dilated (LVDd 5.7 cm) with LVEF 30-35%. RV moderately dilated with normal function. Moderate AI. Shortness for breath with elevated NT proBNP. Pulmonary vascular congestion on x-ray. --07/08/25: Patient continues to have shortness for breath. 20 mg IV Lasix x1 ordered. --metoprolol succinate 25 mg daily --continue losartan 50 mg daily --we will consider Aldactone/Jardiance if able to tolerate prior to discharge. Of note, Jardiance and Entresto may be cost prohibitive for him. Tobacco use disorder Quit smoking when he started feeling short of breath last week. --highly encouraged to continue not smoking after discharge. Hyperlipidemia Total cholesterol 206, LDL 142, HDL 32, triglycerides 109 --high-intensity statin as noted above is recommended. This plan was discussed with supervising physicians, Dr. Tor Ureña and Dr. Néstor Ureña, who are in agreement with above. Supervising Physician: YIN Carranza Jul 09, 2025 16:05
[2025-07-10] VITALS (20 sets, daily range): BP systolic 103–139; BP diastolic 40–59; PULSE 66–101; RESP 12–25; TEMP 97–97.9; O2SAT 94–98
[2025-07-10 06:18] LABS: CREATININE 0.94 MG/DL (0.60-1.10); TOTAL CARBON DIOXIDE 27.6 MMOL/L (24-32); eCRCL 99 ML/MIN; eGFR 84 ML/MIN
[2025-07-10 06:25] LABS: MEAN PLATELET VOLUME 7.1 FL (7.4-10.4); RED CELL DISTRIBUTION WIDTH 13.6 % (11.5-14.5)
--- NOTE | 2025-07-10 12:44 | PROGRESS NOTE- Residence ---
Progress Note - Resident Providers to CC Resident Creating Document: RICHARD CASTELAN RES ~ Antibiotic Timeout Antibiotic Ordered?: No Subjective Patient's angiogram was postponed yesterday. The patient will be taken to angiogram today. Objective Vital Signs Date Time Temp Pulse Resp B/P (MAP) Pulse Ox O2 Delivery O2 Flow Rate FiO2 07/10/25 08:49 14 98 Room Air 0.0 21 07/10/25 07:27 91 07/10/25 06:00 97.3 107/42 (63) Result Diagram: 07/10/25 0535 07/10/25 0535 Vitals were stable at the moment with temp 97.3 F, ID 99/minute, RR 20/minute, BP 123/53 mm Hg, pulse oximetry 95% on room air. On exam, General: Well alert, well oriented, not confused, not agitated, not in acute distress, well cooperated during the physical. HEENT: Conjunctive are pink, sclerae clear, no icterus, pupil is equal in both sides, reactive to light, no ear discharge, no pharyngeal erythema or an edema, mouth and lips are dry. Neck: Supple, no JVD, no lymphadenopathy and thyromegaly. 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: No focal neurological deficits, no motor and sensory weakness in all 4 extremities, could move all 4 extremities Musculoskeletal: No joint swelling, deformities, inflammations, and no scoliosis and back tenderness Skin: No active skin lesions and rashes Coagulation Studies Laboratory Tests Test 07/07/25 08:36 07/08/25 04:20 07/09/25 05:51 D-Dimer 1.05 MG/L FEU (0-0.50) H D-Dimer Comment APTT (Heparin Protocol) 33 SECONDS (45-60) L Prothrombin Time 11.1 SECONDS (9.0-12.0) INR International Normalized Ratio 1.1 INR Coagulation Comments Assessment Assessment A 54 years old male with no known past medical history presented with the acute shortness of breath and substernal pain over the 8 days back which was progressive and worsening today. He was found to have elevated serial trop with ST T depression at the lateral EKG leads. He was admitted for the NSTEMI for further investigation and management plan. He was evaluated by Dr Tuyet Ureña and team for the further evaluation and coronary angiogram. Plan Plan # NSTEMI # Acute on chronic decompensated CHFrEF 30-35% on 07/07/25 -given history of elevated initial troponin level 715 with a downtrending serial troponin show 660, 663 in the presence of typical angina associated with the shortness of breaths, EKG noted for ST-T depression in inferior leads, patient is possibly having the non-STEMI situation -elevated proBNP, pending 2D echocardiogram -started on heparin drip -consulted with Dr Tuyet Ureña and appreciate it. -SL Nitrogly as needed for CP -Protonix 40 mg PO Daily -Pending Utox screen 07/08/25: He will be undergoing coronary angiogram today -continue IV Heparin until further notice by Cardiology team -continue metoprolol succinate 50mg QD -echocardiogram on 07/07/2025 showed LVEF 30-35%, multi segmental wall motion abnormalities, overall systolic function severely reduced, RV moderately dilated, LA mildly dilated, trace MR, TR, mildly dilated aortic root 4.04, normal pericardium and no effusion. -was given one time dose of IV Lasix 20 mg once yesterday and continue BID 07/09/2025: Dr Tuyet Ureña will be doing angiogram today. -continue GDMT as per BP allows, and IV Lasix 20 BID 07/10/2025: Patient will be having coronary angiogram today sc yesterday was postponed -continue GDM T on IV Lasix 20 b.i.d. # Acute respiratory distress # Elevated D Dimer -Ruled out Acute PE with CTA Chest showed No pulmonary embolism. Cardiomegaly with mild pulmonary edema and small right pleural effusion. -chest x-ray showed Increased interstital prominence. This may represent pulmonary vascular congestion and/or viral pneumonia. Clinical correlation advised. 07/10/2025: Continue IV diuretics 07/09/2025: Continue IV Lasix 20 mg b.i.d. -pulmonary rehab # Hypertension # HLD # Overweight with BMI 28.4 -HbA1c 5.6, pending lipid profile, TSH WNL -to calculate for 10 years ASCVD risk for statin therapy -control CP -continue monitoring BP -started PO Losartan 50 mg daily 07/08/25: BP is stabilized and controlled well around 120/60 mm Hg, continue Losartan -total cholesterol 206, LDL 142 with a goal LDL she will be< 55 -10 year ASCVD risk is 22%, continue high intensity atorvastatin 40 mg daily -HGB A1c 5.6 07/09/2025: BP stabilized around 120/50 mm Hg -continue p.o. losartan 50 mg daily, atorvastatin 40 mg daily -RBS ranging around 110s 07/10/2025: BP is on the soft side on GDM T, continue GDMT and Lasix therapy -RBS well-controlled during hospitalization # mild protein calorie malnutrition -encourage protein diet. CODE STATUS: Full code DVT prophylaxis: IV heparin Analgesia/sedation: IV morphine as needed Lines/tubes: PIV GI prophylaxis: Protonix Nutrition: Heart healthy diet Prognosis: Guarded Disposition: Continue medical management, proceed with the cardiology Catheterization, pain control and blood pressure control, PT eval and DC plan. Resident MD attestation: Patient was seen, examined and discussed with attending MD, Dr. Leanne CASTELAN MD Internal Medicine Resident, PGY3 [facility] Date of Service: Jul 10, 2025 Billing Provider: RACHELE REYES MD, TIN, RES Jul 10, 2025 12:44
[2025-07-10] MEDS ORDERED: midazolam 1 mg/ML 2ml injection ONE (13:09)
[2025-07-10] MEDS ORDERED: LIDOcaine 1% (10mg/ml) 2ml vial ONE (13:09)
[2025-07-10] MEDS ORDERED: heparin 1,000unit/ml 10ml vial 10 ML ONE (13:09)
[2025-07-10] MEDS ORDERED: verapamil 2.5 mg/ml inj IV ONE (13:09)
[2025-07-10] MEDS ORDERED: fentaNYL/PF 50MCG/1 ML 2ML syringe ONE (13:09)
[2025-07-10] MEDS ORDERED: nitroGLYCERIN 500mcg/5mL D5W 5 ML IV ONE (13:10)
[2025-07-10] MEDS ORDERED: iohexol 350 MG/ML 50ML vial IV ONE (14:29)
--- NOTE | 2025-07-10 17:36 | CARDIAC CATH REPORT ---
Cardiac Cath Report Providers to CC CC: ROHAN LAKHANI MD Procedure Comments: 1. Left Heart Catheterization 2. Selective Coronary Angiography 3. Right Radial Artery Access Brief History/Indications: 54yo man with HTN, HLD, HFrEF and mildly elevated troponins referred for evaluation. Techniques: After informed consent was obtained, the patient was brought to the cardiac catheterization laboratory and prepped and draped in usual sterile fashion for left heart catheterization and other procedures mentioned above. The right wrist was anesthetized with 1% Lidocaine and the right radial artery accessed via the Seldinger technique after which a 6Fr sheath was placed. Through this a TIG was used to engage the left ventricle, the left coronary artery, and the right coronary artery. At the conclusion of the case the sheath was removed and hemostasis obtained with a VascBand. Findings Findings: HEMODYNAMICS: LV: 113/14 mmHg LVEDP: 36 mmHg Ao: 108/55, MAP 77 mmHg CORONARY ARTERIES: Rt Dominant LMCA: Luminal Irregularities LAD: Mid 30% stenosis D1: Luminal Irregularities D2: Luminal Irregularities LCx: Luminal Irregularities OM1: Luminal Irregularities OM2: Luminal Irregularities RCA: Prox 20% stenosis PDA: Luminal Irregularities PL: Luminal Irregularities Results Results: 1. No significant obstructive CAD 2. RRA Access, closed with VascBand RECOMMENDATIONS: 1. Recommend uptitration of max-tolerated GDMT SURJIT LAKHANI MD Jul 10, 2025 17:36
[2025-07-11 02:00] VITALS: BP 110/60; PULSE 88; RESP 15; TEMP 97.8; O2SAT 99
[2025-07-11 06:00] VITALS: BP 128/52; PULSE 85; RESP 18; TEMP 97.3; O2SAT 98
[2025-07-11 06:08] LABS: MEAN PLATELET VOLUME 6.8 FL (7.4-10.4); RED CELL DISTRIBUTION WIDTH 13.8 % (11.5-14.5)
[2025-07-11 06:31] LABS: CREATININE 1.08 MG/DL (0.60-1.10); TOTAL CARBON DIOXIDE 29.1 MMOL/L (24-32); eCRCL 86 ML/MIN; eGFR 71 ML/MIN
[2025-07-11 08:00] VITALS: RESP 16; O2SAT 98
[2025-07-11] MEDS ORDERED: METO-395 PO (10:06)
[2025-07-11] MEDS ORDERED: ATOR20TA66 PO (10:06)
[2025-07-11] MEDS ORDERED: SPIR25TA5 PO (10:06)
[2025-07-11] MEDS ORDERED: LOSA50TA64 PO (10:06)
[2025-07-11] MEDS ORDERED: ASPI-1071 PO (10:06)
[2025-07-11] MEDS ORDERED: FURO-150 PO (10:06)
[2025-07-11] MEDS ORDERED: EMPA10TA PO (10:06)
--- NOTE | 2025-07-11 10:20 | DISCHARGE SUMMARY-Residence ---
Discharge Summary Providers to CC Resident Creating Document: HARRY FERNÁNDEZ RES ~ Discharge Summary Admission Diagnosis: NSTEMI Hospital Course DATE OF ADMISSION: 07/07/2025 DATE OF DISCHARGE: 07/11/2025 Chest x-ray: Increased interstital prominence. This may represent pulmonary vascular congestion and/or viral pneumonia. Clinical correlation advised. Chest CTA: No pulmonary embolism. Cardiomegaly with mild pulmonary edema and small right pleural effusion. Echocardiogram: Dilated LV size and wall thickness. Multisegmental wall motion abnormalities. Overall systolic function is severely reduced. LVEF is 30-35%. RV is moderately dilated with normal function. Left atrium is mildly dilated. Trileaflet AV appears normal without stenosis. Eccentric at least moderate insufficiency, difficult to evaluate due to rapid heart rate. Mild MV annular calcification without stenosis. Trace regurgitation. TV appears structurally normal with trace regurgitation. Aortic root is mildly dilated, at 4.04. Normal pericardium. No effusion. Angiogram: CORONARY ARTERIES: Rt Dominant LMCA: Luminal Irregularities LAD: Mid 30% stenosis D1: Luminal Irregularities D2: Luminal Irregularities LCx: Luminal Irregularities OM1: Luminal Irregularities OM2: Luminal Irregularities RCA: Prox 20% stenosis PDA: Luminal Irregularities PL: Luminal Irregularities Results: 1. No significant obstructive CAD 2. RRA Access, closed with VascBand RECOMMENDATIONS: 1. Recommend uptitration of max-tolerated GDMT Laboratory Tests Test 07/10/25 05:35 07/11/25 05:44 White Blood Count 8.0 X10'3 7.8 X10'3 Red Blood Count 4.65 X10'6 4.66 X10'6 Hemoglobin 13.1 g/dl 13.1 g/dl Hematocrit 38.5 % 38.7 % Mean Corpuscular Volume 82.8 FL 83.0 FL Mean Corpuscular Hemoglobin 28.2 PG 28.0 PG Mean Corpuscular Hemoglobin Concent 34.1 g/dL 33.8 g/dL Red Cell Distribution Width 13.6 % 13.8 % Platelet Count 226 X10'3 230 X10'3 Mean Platelet Volume 7.1 FL 6.8 FL Neutrophils (%) (Auto) 58.5 % 60.1 % Lymphocytes (%) (Auto) 33.7 % 31.3 % Monocytes (%) (Auto) 5.7 % 6.2 % Eosinophils (%) (Auto) 1.6 % 1.9 % Basophils (%) (Auto) 0.5 % 0.5 % Neutrophils # (Auto) 4.7 X10'3 4.7 X10'3 Lymphocytes # (Auto) 2.7 X10'3 2.4 X10'3 Monocytes # (Auto) 0.5 X10'3 0.5 X10'3 Eosinophils # (Auto) 0.1 X10'3 0.1 X10'3 Basophils # (Auto) 0.0 X10'3 0.0 X10'3 CBC Comment Sodium Level 139 MMOL/L 142 MMOL/L Potassium Level 4.1 MMOL/L 4.3 MMOL/L Chloride Level 104 MMOL/L 103 MMOL/L Carbon Dioxide Level 27.6 MMOL/L 29.1 MMOL/L Anion Gap 7 10 Blood Urea Nitrogen 20 MG/DL 22 MG/DL Creatinine 0.94 MG/DL 1.08 MG/DL Estimated GFR/1.73 m2 84 ML/MIN 71 ML/MIN BUN/Creatinine Ratio 21.3 20.4 Glucose Level 103 MG/DL 106 MG/DL Calcium Level 9.5 MG/DL 9.4 MG/DL Magnesium Level 2.0 MG/DL 2.1 MG/DL Total Bilirubin 0.4 MG/DL 0.4 MG/DL Aspartate Amino Transf (AST/SGOT) 18 U/L 11 U/L Alanine Aminotransferase (ALT/SGPT) 22 U/L 16 U/L Alkaline Phosphatase 83 IU/L 81 IU/L Total Protein 7.0 G/DL 6.8 G/DL Albumin 3.4 G/DL 3.3 G/DL Globulin 3.6 G/DL 3.5 G/DL Albumin/Globulin Ratio 0.9 0.9 Chemistry Comments Discharge Diagnosis\Comment: # NSTEMI # Acute on chronic decompensated CHFrEF 30-35% on 07/07/25 # Acute respiratory distress - resolved # Elevated D Dimer # Hypertension # HLD # Overweight with BMI 28.4 Operations\Procedures: Cardiac catheterization Consultants: Cardiology Complications: None Condition on DC: Stable New Medications: Empagliflozin (Jardiance) 10 Mg Tablet 1 TAB PO DAILY for 30 Days, #30 TAB 0 Refills Furosemide* (Lasix*) 20 Mg Tablet 1 TAB PO DAILY for 30 Days, #30 TAB Spironolactone (Spironolactone) 25 Mg Tablet 12.5 MG PO DAILY for 30 Days, #30 TAB Aspirin (Ecotrin*) 81 Mg Tablet.dr 1 TAB PO DAILY for 30 Days, #30 TAB.SR Atorvastatin Calcium (Atorvastatin Calcium) 20 Mg Tablet 40 MG PO DAILY for 30 Days, #60 TAB Losartan Potassium (Losartan Potassium) 50 Mg Tablet 50 MG PO DAILY for 30 Days, #30 TAB Metoprolol Succinate (Metoprolol Succinate) 25 Mg Tab.sr.24h 50 MG PO DAILY for 30 Days, #30 TAB.SR Discharge Summary: History of present illness A 54 years old male with no known past medical history presented with the acute shortness of breath and substernal pain over the 8 days back which was progressive and worsening recently. He endorsed that he has not been visiting PCP over 30 years and not known what medical condition he has. He reported that he has been having progressive SOB on exertion even on staying still with the off and on chest pressure across the chest. He stated that he quit smoking 7 days ago, and used to smoke 2 packs per day for 35 years and reduced down to the 1 pack per day. He dose not have any knowledge if he has any cholesterol problems or HTN or DM or Heart diseases. He denies any extensive familial cardiac disorder history. He denies for hemoptysis, fever with chills and rigors, etc. Hospital course 54-year-old male patient admitted for shortness of breath and chest pain. He was found to have acute CHF with reduced EF and elevated troponins. He was treated with IV Lasix, aspirin, atorvastatin and GDMT, tolerating it without any major side effects. Angiogram was done and did not not show any severely stenotic lesions, so maximum tolerated GDMT was recommended. PE was ruled out with chest CTA. Patient is asymptomatic today, denies chest pain, shortness for breath, dizziness or palpitation. He is stable to be discharged with outpatient follow-up. Discharge physical exam General: Well alert, well oriented, not confused, not agitated, not in acute distress, well cooperated during the physical. HEENT: Conjunctive are pink, sclerae clear, no icterus, pupil is equal in both sides, reactive to light, no ear discharge, no pharyngeal erythema or an edema, mouth and lips are dry. Neck: Supple, no JVD, no lymphadenopathy and thyromegaly. Lungs:Equal air entry on both lungs, no additional sounds Heart: S1-S2 regular sinus rhythm and, regular rate, no gallops, no rubs, no murmurs Abdomen: No visible peristalsis, Bowel sounds present on auscultation, soft, nontender, no guarding, no rigidity Extremities: No obvious deformities, no pitting edema bilaterally, capillary refill intact, able to wiggle toes both sides, peripheral pulsations are intact on both sides [employer]: No focal neurological deficits, no motor and sensory weakness in all 4 extremities, could move all 4 extremities Musculoskeletal: No joint swelling, deformities, inflammations, and no scoliosis and back tenderness Skin: No active skin lesions and rashes Discharge medications See below Discharge instructions Follow-up with your primary care physician in 1-2 weeks Follow-up with Dr. Ureña (Office number [phone]) Take aspirin and atorvastatin daily Taking losartan, spironolactone, Jardiance and metoprolol daily Monitor your blood pressure closely since these medication can cause hypotension Repeat your echocardiogram in three months for ejection fraction evaluation Come back in case of chest pain, syncope, shortness for breath or any concerning symptoms *Problems/Diagnosis: (1) NSTEMI (non-ST elevated myocardial infarction) Status: Acute (2) Heart failure with reduced ejection fraction (HFrEF, <= 40%) Status: Acute (3) Hypertension Status: Chronic (4) Hyperlipidemia Status: Chronic (5) Exertional shortness of breath Status: Resolved (6) Chest pressure Status: Resolved Total Time Spent on D/C: > 30 Minutes Date of Service: Jul 11, 2025 Billing Provider: MICHELLE VAILA MD Common Visit Codes: 73259-LBS/OBS DISCH DAY >30min Problem Qualifiers (1) Hypertension: Hypertension type: primary hypertension Qualified Codes: I10 - Essential (primary) hypertension (2) Hyperlipidemia: Hyperlipidemia type: pure hypercholesterolemia Qualified Codes: E78.00 - Pure hypercholesterolemia, unspecified HARRY FERNÁNDEZ RES Jul 11, 2025 10:20 MICHELLE AVILA MD Jul 11, 2025 19:06
[2025-07-11 10:47] VITALS: BP 113/43; PULSE 88; RESP 18; TEMP 97.6; O2SAT 92
== END 2025-07-11 11:48 | disposition home or self-care (01) | DRG 280 ==
LOC: ER 08:31 → ED HOLD 13:13 → PCU 3S 16:30
PROVIDERS: ADMIT Internal Medicine; ATTEND Internal Medicine
PROC: B32T1ZZ Computerized Tomography (CT Scan) of Left Pulmonary Artery using Low Osmolar Contrast (ICD-10-PCS; 2025-07-07)
PROC: B3201ZZ Computerized Tomography (CT Scan) of Thoracic Aorta using Low Osmolar Contrast (ICD-10-PCS; 2025-07-07)
PROC: B32S1ZZ Computerized Tomography (CT Scan) of Right Pulmonary Artery using Low Osmolar Contrast (ICD-10-PCS; 2025-07-07)
PROC: 4A023N7 Measurement of Cardiac Sampling and Pressure, Left Heart, Percutaneous Approach (ICD-10-PCS; principal; 2025-07-10)
PROC: B2111ZZ Fluoroscopy of Multiple Coronary Arteries using Low Osmolar Contrast (ICD-10-PCS; 2025-07-10)
DX: I21.4 Non-ST elevation (NSTEMI) myocardial infarction (principal); I50.23 Acute on chronic systolic (congestive) heart failure; E44.1 Mild protein-calorie malnutrition; I11.0 Hypertensive heart disease with heart failure; E78.5 Hyperlipidemia, unspecified; E66.3 Overweight; F17.210 Nicotine dependence, cigarettes, uncomplicated; I25.10 Atherosclerotic heart disease of native coronary artery without angina pectoris; Z68.28 Body mass index [BMI] 28.0-28.9, adult; Z88.5 Allergy status to narcotic agent
CPT/HCPCS: 36415; 71045; 71275; 80048; 80053; 80061; 80305; 81001; 83036; 83735; 83880; 84145; 84443; 84484; 85025; 85379; 85610; 85730; 87081; 93005; 93306; 93458; 96365; 96375; 96376; 99152; 99153; 99285; A4615; C1894; G0378; J1644; J1938; J2003; J2250; J3010; J3490; J7030; Q9967